=== PATIENT | female | born 1995 | race African-American/Black ===

== ENCOUNTER 2018-02-09 12:54 | Emergency (ER) | payer SELFPAY ==
[2018-02-09] MEDS ORDERED: predniSONE TAB* 20 MG PO ONE (13:12)
[2018-02-09] MEDS ORDERED: Albuterol/Ipratropium NEB.SOL* Albuterol 2.5 MG/Ipratropium 0.5 MG 3 ML INH ONE (13:12)
[2018-02-09 13:18] VITALS: BP 119/70
--- NOTE | 2018-02-09 13:50 | RAD ---
INDICATION: Cough. COMPARISON: Comparison is made with a prior chest x-ray study from February 04, 2012. TECHNIQUE: Dual-energy PA and lateral views of the chest were obtained. FINDINGS: The heart is within normal limits in size. Mediastinal and hilar contours appear within normal limits. There is a small infiltrate in the left lower lobe. No pleural effusion is seen. IMPRESSION: SMALL LEFT LOWER LOBE INFILTRATE.
--- NOTE | 2018-02-09 14:13 | UC ---
[place] Angela, scribed for Darrick Calderon MD on 02/09/18 at 1313 . Respiratory Complaint HPI - HPI Summary HPI Summary: This pt is a 22 y/o female presenting to [facility] c/o cough and SOB x6 days. She describes her cough as nonproductive. Pt states she has difficulty breathing, especially when coughing. Denies fever, chills, chest pain, any other complaints. PMHx: asthma. Pt is a former smoker. - History of Current Complaint Stated Complaint: SORE THROAT SHORT OF BREATH Time Seen by Provider: 02/09/18 13:03 Hx Obtained From: Patient Hx Last Menstrual Period: 05/17/15 Onset/Duration: Lasting Days, Still Present Severity Currently: Moderate Character: Cough: Nonproductive Aggravating Factors: Nothing Alleviating Factors: Nothing Associated Signs And Symptoms: Positive: Dyspnea, Wheezing. Negative: Fever, Chills - Allergies/Home Medications Allergies/Adverse Reactions: Allergies Allergy/AdvReac Type Severity Reaction Status Date / Time No Known Allergies Allergy Verified 11/30/14 23:18 PMH/Surg Hx/FS Hx/Imm Hx Other Endocrine History: DENIES: diabetes Respiratory History: Asthma - Surgical History Surgical History: None - Family History Known Family History: Positive: Hypertension Family History: Colon CA - Social History Alcohol Use: None Substance Use Type: None Smoking Status (MU): Former Smoker Type: Cigarettes Household Exposure Type: Cigarettes - Immunization History Most Recent Influenza Vaccination: fall 2014 Most Recent Tetanus Shot: 11/24/15 Most Recent Pneumonia Vaccination: none Review of Systems Constitutional: Negative Skin: Negative Eyes: Negative ENT: Negative Respiratory: Shortness Of Breath, Cough Cardiovascular: Negative Gastrointestinal: Negative Genitourinary: Negative Motor: Negative Neurovascular: Negative Musculoskeletal: Negative Neurological: Negative Psychological: Negative Is Patient Immunocompromised?: No All Other Systems Reviewed And Are Negative: Yes Physical Exam - Summary Physical Exam Summary: VITAL SIGNS: Reviewed. GENERAL: Patient is a well-developed and nourished female who is lying comfortable in the stretcher. Patient is not in any acute respiratory distress. HEAD AND FACE: Normocephalic EYES: PERRLA, EOMI x 2. EARS: Hearing grossly intact. MOUTH: Oropharynx within normal limits. NECK: Supple, trachea is midline, no adenopathy, no JVD, no carotid bruit. CHEST: Symmetric, no tenderness at palpation LUNGS: Wheezing bilaterally. CVS: Regular rate and rhythm, S1 and S2 present, no murmurs or gallops appreciated. ABDOMEN: Soft, non-tender. Bowel sounds are normal. No abdominal abnormal pulsations. EXTREMITIES: Full ROM in all major joints, no edema, no cyanosis or clubbing. NEURO: Alert and oriented x 3. No acute neurological deficits. Speech is normal and follows commands. SKIN: Dry and warm Triage Information Reviewed: Yes Vital Signs Reviewed: Yes UC Diagnostic Evaluation - Radiology Xray Interpretation: Positive (See Comments) - Chest XR IMPRESSION: Small left lower lobe infiltrate. Dr. Calderon has reviewed this radiology report. Radiology Interpretation Completed By: Radiologist Re-Evaluation - Re-Evaluation First Eval Re-Evaluation Time: 13:55 Change: Improved Comment: I reviewed the XR results with the pt. She will be discharged home. Respiratory Course/Dx - Course Course Of Treatment: This pt is a 22 y/o female presenting to [facility] c/o cough and SOB x6 days. She describes her cough as nonproductive. Pt states she has difficulty breathing, especially when coughing. Denies fever, chills, chest pain , any other complaints. PMHx: asthma. Pt is a former smoker. Chest XR shows small left lower lobe infiltrate. In the UC course the pt was given a duoneb treatment and prednisone. She is feeling better after this treatment. Pt will be discharged home with follow up from her PCP. She was given prescriptions for Albuterol inhaler, Levaquin, and Prednisone. I discussed chest XR results with the patient. Pt was instructed to return to the urgent care or go to ER immediately if any of the symptoms return or worsens. Plan of care was discussed with the patient, she understands and agrees. All questions were answered to patient satisfaction. There were no further complaints or concerns. Pt is hemodynamically stable, alert and oriented x3. - Differential Dx/Diagnosis Provider Diagnoses: Pneumonia. Asthma Discharge - Sign-Out/Discharge Documenting (check all that apply): Discharge - discharge to home - Discharge Plan Condition: Stable Disposition: HOME Prescriptions: Albuterol HFA INHALER* [Ventolin HFA Inhaler*] 1 puff INH Q4H PRN #1 mdi PRN Reason: Shortness Of Breath Levofloxacin TAB* [Levaquin TAB*] 750 mg PO DAILY #10 tab predniSONE TAB* [Deltasone TAB*] 40 mg PO DAILY #8 tab Patient Education Materials: Asthma (ED), Pneumonia (ED) Referrals: [facility] PHYSICIAN REFERRAL [Outside] No Primary Care Phys,NOPCP [Primary Care Provider] - Additional Instructions: Take medications as instructed Increase your fluid intake Return to the UC if symptoms worsen The documentation as recorded by the [place] Angela accurately reflects the service I personally performed and the decisions made by me, Darrick Calderon MD.
== END 2018-02-09 14:00 | disposition home or self-care (01) ==
LOC: UCEAST 12:54
DX: J18.9 Pneumonia, unspecified organism (principal); J45.909 Unspecified asthma, uncomplicated; Z32.02 Encounter for pregnancy test, result negative; Z87.891 Personal history of nicotine dependence
CPT/HCPCS: 71046; 84702; 99212; A9270-GY; G0463; J7512